=== PATIENT | male | born 1955 | race Caucasian/White ===

== ENCOUNTER 2023-06-18 07:32 | Day surgery (SDC) | payer MEDICARE ==
[2023-06-18] MEDS ORDERED: Lidocaine 2% 100 MG/5 ML Syringe IVPUSH ONE (07:33)
[2023-06-18] MEDS ORDERED: Propofol 200 MG/20 ML SDV IV ONE (07:33)
[2023-06-18] MEDS ORDERED: Sodium Chloride 0.9% 10 ML Syringe FLUSH PRN (07:45)
[2023-06-18] MEDS ORDERED: Lactated Ringers 1,000 ML IV SCH (07:45)
[2023-06-18] MEDS ORDERED: Simethicone Drops 40 MG/0.6 ML 30 ML Bottle PO ONE (09:23)
== END 2023-06-18 10:55 | disposition home or self-care (01) ==
LOC: FB.SDS 07:32
PROVIDERS: ATTEND Surgery
DX: Z12.11 Encounter for screening for malignant neoplasm of colon (principal); K42.0 Umbilical hernia with obstruction, without gangrene; K40.90 Unilateral inguinal hernia, without obstruction or gangrene, not specified as recurrent; J45.909 Unspecified asthma, uncomplicated; E66.9 Obesity, unspecified; G47.30 Sleep apnea, unspecified; Z68.28 Body mass index [BMI] 28.0-28.9, adult; Z79.899 Other long term (current) drug therapy; Z98.890 Other specified postprocedural states
CPT/HCPCS: 45378; A9270; J2704; J7120; 00812

== ENCOUNTER 2023-08-03 06:18 | Day surgery (SDC) | payer MEDICARE ==
[~2023-08-03 06:18] MED LIST: Sodium Chloride 0.9% 10 ML Syringe FLUSH PRN
[2023-08-03] MEDS ORDERED: Rocuronium 100 MG/10 ML MDV IV ONE (06:19)
[2023-08-03] MEDS ORDERED: Ondansetron 4 MG/2 ML SDV IVPUSH ONE (06:19)
[2023-08-03] MEDS ORDERED: Midazolam 1 MG/ML 2 ML SDV IV ONE (06:19)
[2023-08-03] MEDS ORDERED: fentaNYL 100 MCG/2 ML SDV IV ONE (06:19)
[2023-08-03] MEDS ORDERED: Sugammadex Sodium 200 MG/2 ML VIAL IV ONE (06:19)
[2023-08-03] MEDS ORDERED: Lactated Ringers 1,000 ML IV ONE (06:19)
[2023-08-03] MEDS ORDERED: Propofol 200 MG/20 ML SDV IV ONE (06:19)
[2023-08-03] MEDS: Lactated Ringers 1,000 ML IV SCH (07:00)
[2023-08-03] MEDS: ceFAZolin 2 GM Vial IVPUSH ONE (07:23)
[2023-08-03] MEDS: Bupivacaine 0.5% 30 ML SDV INJECT ONE (07:47)
[2023-08-03] MEDS: Lidocaine 1% with EPINEPHrine 1:100,000 20 ML MDV INJECT ONE (07:47)
== END 2023-08-03 10:13 | disposition home or self-care (01) ==
LOC: FB.SDS 06:18
PROVIDERS: ATTEND Surgery
DX: K42.0 Umbilical hernia with obstruction, without gangrene (principal); K40.90 Unilateral inguinal hernia, without obstruction or gangrene, not specified as recurrent; J45.909 Unspecified asthma, uncomplicated; G47.30 Sleep apnea, unspecified; E66.9 Obesity, unspecified; Z68.29 Body mass index [BMI] 29.0-29.9, adult; Z90.49 Acquired absence of other specified parts of digestive tract; Z79.899 Other long term (current) drug therapy
CPT/HCPCS: 49592; J0665; J0690; J2250; J2405; J2704; J3010; J3490; J7120